=== PATIENT | female | born 1970 | race Caucasian/White ===

== ENCOUNTER → 2018-01-10 | Outpatient (CLI) | payer OTHER ==
--- NOTE | 2018-01-10 09:38 | DIAGNOSTIC IMAGING REPORT ---
MRI OF THE LUMBAR SPINE WITHOUT IV CONTRAST CLINICAL HISTORY: Chronic low back pain. Lumbosacral radiculopathy. COMPARISON STUDY: No priors. TECHNIQUE: MRI of the lumbar spine is performed utilizing various T1 and T2-weighted sequences in the axial and sagittal planes. IV contrast was not administered for this examination. FINDINGS: Lumbar spine: Vertebral body height and alignment are maintained throughout the lumbar spine. No destructive bony lesion is identified. A small hemangioma is incidentally noted in the body of L2. The transverse and spinous processes appear intact. There is no evidence of spondylolysis. Marrow signal intensity is mildly heterogeneous. Intervertebral discs: There is minimal degenerative disc desiccation seen throughout the lumbar spine. Mild loss of height is noted at L5-S1. Spinal cord: The partially imaged spinal cord is normal in morphology and signal intensity. The conus medullaris terminates at the T12-L1 interspace. The nerve roots of the cauda equina are normal in morphology. L1-L2: Unremarkable. L2-L3: Unremarkable. L3-L4: Unremarkable. L4-L5: Minimal facet arthropathy is of no consequence. The central canal and neural foramina are widely patent. L5-S1: There is minimal disc bulge eccentric to the left. This causes left-sided subarticular stenosis and may abut the exiting left L5 nerve root. This also abuts the transiting left S1 nerve root. Facet arthropathy causes mild left neural foraminal stenosis. Sacrum: The visualized sacrum is normal in morphology and signal intensity. Soft tissues: The paraspinous soft tissues are within normal limits. The visualized retroperitoneal structures are grossly unremarkable but incompletely assessed. IMPRESSION: 1. There is no disc herniation or central canal stenosis. 2. Degenerative disc disease at L5-S1 as detailed above. 3. No destructive bony process is identified. Dictated: 01/10/2018 7:46 AM Transcribed: 01/10/2018 9:37 AM Karen Electronically signed by: Sohail House M.D. 01/10/2018 9:49 AM Dictated Date/Time: 01/10/2018 7:46 AM
== END | disposition home or self-care (01) ==
LOC: C.MRI 07:00
PROVIDERS: ATTEND Physician Assistant
DX: M54.17 Radiculopathy, lumbosacral region (principal); M54.9 Dorsalgia, unspecified; R94.131 Abnormal electromyogram [EMG]

== ENCOUNTER → 2018-07-09 | Outpatient (CLI) | payer OTHER ==
--- NOTE | 2018-07-09 16:38 | DIAGNOSTIC IMAGING REPORT ---
L HAND MIN 3 VIEWS ROUTINE CLINICAL HISTORY: M46.90 pain COMPARISON: None. DISCUSSION: The bones and joint spaces appear intact. There is no evidence of fracture, dislocation or bony disease. There is no evidence for soft tissue swelling. IMPRESSION: Negative study. The above report was generated using voice recognition software. It may contain grammatical, syntax or spelling errors. Electronically signed by: Henry Menjivar M.D. 07/09/2018 4:37 PM Dictated Date/Time: 07/09/2018 4:36 PM
--- NOTE | 2018-07-09 16:39 | DIAGNOSTIC IMAGING REPORT ---
SI JOINTS 3 OR MORE VIEWS CLINICAL HISTORY: M46.90 pain COMPARISON STUDY: No previous studies for comparison. FINDINGS: Normal study IMPRESSION: Normal study The above report was generated using voice recognition software. It may contain grammatical, syntax or spelling errors. Electronically signed by: Henry Menjivar M.D. 07/09/2018 4:38 PM Dictated Date/Time: 07/09/2018 4:37 PM
== END | disposition home or self-care (01) ==
LOC: C.RAD1850 15:09
PROVIDERS: ATTEND Internal Medicine Rheumatology
DX: M46.90 Unspecified inflammatory spondylopathy, site unspecified (principal)

== ENCOUNTER → 2018-07-15 | Outpatient (CLI) | payer OTHER ==
--- NOTE | 2018-07-15 09:48 | DIAGNOSTIC IMAGING REPORT ---
SI JOINTS WITHOUT CLINICAL HISTORY: 47 years-old Female presenting with M46.90 Spondyloarthropathy, numbness in feet, radiculopathy into both legs. TECHNIQUE: Multisequence, multiplanar MR imaging of the sacroiliac joints was performed without the use of intravenous contrast. IV contrast: None. COMPARISON: Plain radiographs from 07/09/2018. FINDINGS: Localizer images: Fibroid uterus. Nonspecific subcutaneous edema in the lower lumbar region. Normal bone marrow signal intensity. No bony edema. Osteophytosis evident at the sacroiliac joints greater on the left. No evidence of osseous erosion. Trace fluid suggested in the left sacroiliac joint, which is asymmetric to the right. Trace fluid also noted along the ventral aspect of the sacroiliac joint (series 7 image 11). No muscle edema. Normal muscle bulk. Intrapelvic contents demonstrate trace free fluid in the pelvis, likely physiologic. IMPRESSION: 1. Trace fluid in the left sacroiliac joint. This is nonspecific but could be compatible with mild inflammatory or degenerative arthropathy. No osseous erosion or bony edema. 2. Left greater than right mild degenerative changes of the sacral iliac joints. Electronically signed by: Angel Stern M.D. 07/15/2018 9:47 AM Dictated Date/Time: 07/15/2018 9:41 AM
== END | disposition home or self-care (01) ==
LOC: C.MRI 08:59
PROVIDERS: ATTEND Internal Medicine Rheumatology
DX: M46.90 Unspecified inflammatory spondylopathy, site unspecified (principal)

== ENCOUNTER → 2018-07-16 | Outpatient (CLI) | payer OTHER ==
[2018-07-16 16:26] LABS: BASO % 0.3 %; BASO ABS # 0.04 K/uL (0-0.2); EOS % 3.8 %; EOS ABS # 0.52 K/uL (0-0.5); HEMATOCRIT 40.3 % (37-47); HEMOGLOBIN 13.4 g/dL (12.0-16.0); IG# 0.04 K/uL (0.00-0.02); LYMPH % 22.3 %; LYMPH ABS # 3.04 K/uL (1.2-3.4); MEAN CELL VOLUME 87.6 fL (80-100); MEAN CORPUSCULAR HEMOGLOBIN 29.1 pg (25-34); MEAN CORPUSCULAR HGB CONC 33.3 g/dl (32-36); MEAN PLATELET VOLUME 10.7 fL (7.4-10.4); MONO % 4.8 %; MONO ABS # 0.65 K/uL (0.11-0.59); NEUT % 68.5 %; NEUT ABS # 9.36 K/uL (1.4-6.5); PLATELET COUNT 293 K/uL (130-400); RED CELL DISTRIBUTION WIDTH CV 12.7 % (11.5-14.5); RED CELL DISTRIBUTION WIDTH SD 40.8 fL (36.4-46.3); WHITE BLOOD COUNT 13.65 K/uL (4.8-10.8)
[2018-07-16 16:45] LABS: ALBUMIN 3.3 gm/dl (3.4-5.0); ALKALINE PHOSPHATASE 89 U/L (45-117); ALT/SGPT 21 U/L (12-78); AST/SGOT 14 U/L (15-37); CREATININE 0.79 mg/dl (0.60-1.20); TOTAL PROTEIN 6.6 gm/dl (6.4-8.2)
== END | disposition home or self-care (01) ==
LOC: C.LAB1850 15:37
PROVIDERS: ATTEND Internal Medicine Rheumatology
DX: M46.1 Sacroiliitis, not elsewhere classified (principal); Z79.1 Long term (current) use of non-steroidal anti-inflammatories (NSAID)

== ENCOUNTER 2023-06-09 08:42 | Observation (INO) ==
--- NOTE | 2023-06-09 09:12 | Emergency Department Note ---
History of Present Illness General Chief complaint: Chest Pain Stated complaint: LIGHTHEADED, CHEST TIGHTNESS Time Seen by Provider: 06/09/23 09:01 History of Present Illness Maximum Pain Intensity: 5 This is a 52-year-old female that presents to the emergency department via private vehicle with complaints of "lightheaded, chest tightness". The patient notes that she has been outside as of recent in the warm weather and notes that she began to feel unwell. She notes that yesterday evening she then began with some lightheadedness and upon awakening today notes that when she breathes and she feels a tightness in her chest. She notes associated diarrhea, intermittent abdominal cramping, nausea and intermittent dry heaving. She denies any trauma or injury. She denies any fever. No history of AK or PE. Patient does note recent medication change, specifically notes addition of etodolac but she notes that her symptoms as described above began shortly after starting this medi cation therefore she stopped this medication as of recent. Home Medications Medication Instructions Recorded Confirmed Type divalproex 500 mg tablet,delayed See Rx Instructions .Route 12/25/22 06/09/23 Rx release .COMPLEX #90 tabs duloxetine 60 mg capsule,delayed 60 mg PO DAILY #90 caps 01/16/23 06/09/23 Rx release erenumab-aooe 140 mg/mL 140 mg subcut MONTHLY 90 days #3 mL 02/25/23 06/09/23 Rx subcutaneous auto-injector (Aimovig Autoinjector) cholecalciferol (vitamin D3) 1,250 50,000 unit PO .COMPLEX 30 days 03/05/23 06/09/23 Rx mcg (50,000 unit) capsule #30 caps cyclopentolate 1 % eye drops 1 drp ophthalmic (eye) TID #15 mL 03/24/23 06/09/23 Rx (Cyclogyl) prednisolone sodium phosphate 1 % 1 drp ophthalmic (eye) Q3H #10 mL 03/24/23 06/09/23 Rx eye drops divalproex 250 mg tablet,delayed 250 mg PO .at hs #90 tabs 05/29/23 06/09/23 Rx release (Depakote) Allergies Allergy/AdvReac Type Severity Reaction Status Date / Time adalimumab [From Humira(CF)] Allergy Intermediate rash Verified 06/03/23 11:49 Past Med/Surg History Medical History Ankylosing spondylitis Cervical pain Cervical radiculopathy Chronic constipation Depression with anxiety Fibromyalgia GERD (gastroesophageal reflux disease) HTN (hypertension) Hx of migraine headaches Long-term use of immunosuppressant medication Lumbosacral radiculitis Migraine aura without headache Polyarthritis Rosacea Sacroiliitis Surgical History Hx of tonsillectomy Tubal ligation status Family History Father Myocardial infarction Dementia Hypotension Heart trouble Unknown Heart trouble Diabetes Parkinsonism Colon cancer FH: endocrine and metabolic disease Mother Hypertension Other Gallbladder disease Heart disease Social History Smoking Status: Former smoker Hx Alcohol Use: No Hx Substance Use: Yes Last Used Substance: Days (ago) Substance Use Type Other:: medical marijuana for fibromyalgia and migraines Preferred Language: Lithuanian Communication Ability: Effective Visual Impairment: No Limitations Hearing Ability: Normal Reexaminer Required: No Beliefs That Will Affect Care: None marital status: Current Living Situation: Spouse Current Living Situation Comment: Home w/ and daughter current occupational status: unemployed Other Information That Helps Us Care for You: No other: " Does not want narcotics in her home" Feels Safe at Home: Yes Safety Concerns: Feels Safe At This Time Assistive Devices: Glasses Review of Systems A total of 10 systems reviewed and were otherwise negative Physical Exam Vital Signs Vital Signs - 24 hr 06/09/23 08:46 06/09/23 08:59 06/09/23 09:07 Temperature 36.4 C L Temperature Source Temporal Artery Scan Pulse Rate 71 58 L Pulse Rate from SpO2 Sensor Pulse Rhythm Respiratory Rate 18 Respiratory Effort / Characteristics Non-Labored Non-Labored Respiratory Depth Normal Normal Blood Pressure 124/82 Blood Pressure Mean 96 Blood Pressure Position Sitting Pulse Oximetry 98 Oxygen Delivery Method Room Air Room Air Sepsis Recent Fever Within 48 Hours No Sepsis New/Unexplained Change in Mental Status No Sepsis Action Taken by Nursing No Action Required 06/09/23 09:10 06/09/23 09:32 06/09/23 10:00 Temperature Temperature Source Pulse Rate 58 L 59 L 50 L Pulse Rate from SpO2 Sensor 60 49 L Pulse Rhythm Regular Respiratory Rate 18 18 19 Respiratory Effort / Characteristics Respiratory Depth Blood Pressure 130/72 114/66 Blood Pressure Mean 91 82 Blood Pressure Position Pulse Oximetry 98 97 96 Oxygen Delivery Method Room Air Sepsis Recent Fever Within 48 Hours Sepsis New/Unexplained Change in Mental Status Sepsis Action Taken by Nursing 06/09/23 10:30 06/09/23 11:00 06/09/23 11:30 Temperature Temperature Source Pulse Rate 49 L 48 L 56 L Pulse Rate from SpO2 Sensor 48 L 48 L 56 L Pulse Rhythm Respiratory Rate 12 13 13 Respiratory Effort / Characteristics Respiratory Depth Blood Pressure 108/74 124/65 124/66 Blood Pressure Mean 85 84 85 Blood Pressure Position Pulse Oximetry 96 96 96 Oxygen Delivery Method Sepsis Recent Fever Within 48 Hours Sepsis New/Unexplained Change in Mental Status Sepsis Action Taken by Nursing 06/09/23 12:00 06/09/23 12:30 06/09/23 13:00 Temperature Temperature Source Pulse Rate 55 L 54 L 53 L Pulse Rate from SpO2 Sensor 55 L 53 L Pulse Rhythm Respiratory Rate 11 L 17 15 Respiratory Effort / Characteristics Respiratory Depth Blood Pressure 122/73 120/71 116/73 Blood Pressure Mean 89 87 87 Blood Pressure Position Pulse Oximetry 99 96 Oxygen Delivery Method Sepsis Recent Fever Within 48 Hours Sepsis New/Unexplained Change in Mental Status Sepsis Action Taken by Nursing 06/09/23 13:05 06/09/23 14:00 Temperature Temperature Source Pulse Rate 57 L 52 L Pulse Rate from SpO2 Sensor 52 L Pulse Rhythm Respiratory Rate 15 Respiratory Effort / Characteristics Respiratory Depth Blood Pressure 128/75 Blood Pressure Mean 92 Blood Pressure Position Pulse Oximetry 97 Oxygen Delivery Method Sepsis Recent Fever Within 48 Hours Sepsis New/Unexplained Change in Mental Status Sepsis Action Taken by Nursing VITAL SIGNS - Vital signs and triage nursing notes were reviewed. Stable and afebrile. GENERAL -52-year-old female appearing her stated age who is in no acute distress. Communicates well with provider and answers questions appropriately. SKIN - Without rashes. No meningeal or petechial rash. HEAD - NC/AT. EYES - PERRL with EOMI bilaterally. Sclera anicteric. EARS - No deformities of external structures noted on gross examination bilaterally. NOSE - Midline and without cyanosis. No epistaxis or purulent drainage noted. MOUTH/OROPHARYNX - Without perioral cyanosis. NECK - Neck with FROM. No nuchal rigidity. LUNGS - Chest wall symmetric without accessory muscle use, intercostals retractions, or central cyanosis. Normal vesicular breath sounds CTA B/L. No wheezes, rales, or rhonchi appreciated. CARDIAC - RRR ABDOMEN - Abdominal contour normal without pulsations or visible masses. BS normoactive all four quadrants. No tenderness, palpable masses, hepatosplenomegaly, or ascites noted. EXTREMITIES - No clubbing or peripheral cyanosis. +5/5 strength noted in UE/LE bilaterally. NEUROLOGIC - Cranial nerves II through XII grossly intact. PSYCH - A&Ox3 and cooperates fully with examiner. Pt is very pleasant and interacts well with examiner. Course Administered Medications Cyclopentolate HCl (Cyclopentolate Hcl 1% Op Soln 2 Ml Btl) 1 drops OP TID NAS Stop: 07/09/23 20:59 Last Admin: 06/09/23 20:31 Dose: 1 drops Documented By: MALICK Divalproex Sodium (Divalproex Delay Release 250 Mg Tabec) 750 mg PO HS NAS Stop: 07/09/23 20:59 Last Admin: 06/09/23 20:30 Dose: 750 mg Documented By: MALICK Enoxaparin Sodium (Enoxaparin Inj 40 Mg/0.4 Ml Syr) 40 mg SQ Q12H NAS Stop: 07/09/23 20:59 Last Admin: 06/09/23 20:32 Dose: 40 mg Documented By: MALICK Prednisolone Sodium Phosphate (Prednisolone Sod Phos 1% 10 Ml Btl) 1 drops OP Q3H NAS Stop: 07/09/23 17:59 Last Admin: 06/09/23 20:34 Dose: 1 drops Documented By: Admin: 06/09/23 18:23 Dose: 1 drops Documented By: [facility] Discontinued Medications Gadobutrol (Gadobutrol 10ml Vial) 10 ml IV ONCE ONE Stop: 06/09/23 17:18 Last Admin: 06/09/23 17:17 Dose: 10 ml Documented By: ANA Sodium Chloride (Nss 1000ml) 1,000 mls @ 999 mls/hr IV .Q1H1M NAS Stop: 06/09/23 13:45 Last Infusion: 06/09/23 14:02 Dose: 0 mls/hr Documented By: Admin: 06/09/23 12:59 Dose: 999 mls/hr Documented By: JANET Lorazepam (Lorazepam 1 Mg Tab) 1 mg PO NOW STA Stop: 06/09/23 15:40 Last Admin: 06/09/23 15:43 Dose: 1 mg Documented By: ALLI Medical Decision Making Laboratory Data 06/09/23 08:55 06/09/23 08:55 Lab Results 06/09/23 06/09/23 06/09/23 Range/Units 08:55 08:55 08:55 WBC 7.91 (4.8-10.8) K/ul RBC 4.83 (4.20-5.40) M/uL Hgb 14.1 (12.0-16.0) g/dl Hct 42.5 (37.0-47.0) % MCV 88.0 (80.0-100.0) fL MCH 29.2 (25.0-34.0) pg MCHC 33.2 (32.0-36.0) g/dL RDW Std Deviation 41.9 (36.4-46.3) fL RDW Coeff of Shelli 13.0 (11.5-14.5) % Plt Count 297 (130-400) K/uL MPV 10.5 (9.4-12.4) fL Immature Gran % (Auto) 0.5 % Neut % (Auto) 56.4 % Lymph % (Auto) 28.6 % [place] % (Auto) 8.6 % Eos % (Auto) 4.6 % Baso % (Auto) 1.3 % Neut # (Auto) 4.47 (1.40-6.50) K/uL Lymph # (Auto) 2.26 (1.2-3.4) K/uL [place] # (Auto) 0.68 H (0.11-0.59) K/uL Eos # (Auto) 0.36 (0-0.50) K/uL Baso # (Auto) 0.10 (0-0.2) K/uL Immature Gran # (Auto) 0.04 (0.01-0.20) K/uL PT 10.1 (9.0-12.0) Seconds INR 0.9 (0.9-1.1) APTT 32.2 H (21.0-31.0) Seconds PTT Ratio 1.1 D-Dimer 250 (0-500) ug/L FEU Sodium 138 (136-145) mmol/L Potassium 4.1 (3.5-5.1) mmol/L Chloride 104 (98-107) mmol/L Carbon Dioxide 27 (21-32) mmol/L Anion Gap 7 (3-11) BUN 15 (6-23) mg/dl Creatinine 0.67 (0.6-1.2) mg/dl Est Cr Clr Drug Dosing 109.9 ml/min Est GFR ( Amer) 117.1 ml/min Est GFR (Non-Af Amer) 101.1 ml/min BUN/Creatinine Ratio 22.4 H (10-20) Glucose 90 (70-99(Fasting)) mg/dl Calcium 9.1 (8.6-10.3) mg/dl Magnesium 2.0 (1.7-2.4) mg/dl Total Bilirubin 0.6 (0.2-1.0) mg/dl AST 13 (13-39) U/L ALT 12 (7-52) U/L Alkaline Phosphatase 72 (34-104) U/L Troponin I High Sens < 2.3 (0-14) pg/ml Total Protein 6.9 (6.0-8.3) gm/dl Albumin 4.1 (3.4-5.0) gm/dl Globulin 2.8 (2.5-4.0) gm/dl Albumin/Globulin Ratio 1.5 (0.9-2) Lipase 21 (11-82) U/L Adenovirus (PCR) (NotDetected) B. pertussis DNA (PCR) (NotDetected) B.parapertussis DNA PCR (NotDetected) C. pneumoniae DNA (PCR) (NotDetected) Coronavirus OC43 (PCR) (NotDetected) Coronavirus HKU1 (PCR) (NotDetected) Coronavirus 229E (PCR) (NotDetected) SARS-CoV-2 (PCR) (NotDetected) Coronavirus NL63 (PCR) (NotDetected) Human Metapneumovir PCR (NotDetected) Influenza Type A (PCR) (NotDetected) Influenza Type B (PCR) (NotDetected) M. pneumoniae (PCR) (NotDetected) Parainfluenza 1 (PCR) (NotDetected) Parainfluenza 2 (PCR) (NotDetected) Parainfluenza 3 (PCR) (NotDetected) Parainfluenza 4 (PCR) (NotDetected) RSV (PCR) (NotDetected) Entero/Rhino (PCR) (NotDetected) 06/09/23 06/09/23 Range/Units 09:26 11:07 WBC (4.8-10.8) K/ul RBC (4.20-5.40) M/uL Hgb (12.0-16.0) g/dl Hct (37.0-47.0) % MCV (80.0-100.0) fL MCH (25.0-34.0) pg MCHC (32.0-36.0) g/dL RDW Std Deviation (36.4-46.3) fL RDW Coeff of Shelli (11.5-14.5) % Plt Count (130-400) K/uL MPV (9.4-12.4) fL Immature Gran % (Auto) % Neut % (Auto) % Lymph % (Auto) % [place] % (Auto) % Eos % (Auto) % Baso % (Auto) % Neut # (Auto) (1.40-6.50) K/uL Lymph # (Auto) (1.2-3.4) K/uL [place] # (Auto) (0.11-0.59) K/uL Eos # (Auto) (0-0.50) K/uL Baso # (Auto) (0-0.2) K/uL Immature Gran # (Auto) (0.01-0.20) K/uL PT (9.0-12.0) Seconds INR (0.9-1.1) APTT (21.0-31.0) Seconds PTT Ratio D-Dimer (0-500) ug/L FEU Sodium (136-145) mmol/L Potassium (3.5-5.1) mmol/L Chloride (98-107) mmol/L Carbon Dioxide (21-32) mmol/L Anion Gap (3-11) BUN (6-23) mg/dl Creatinine (0.6-1.2) mg/dl Est Cr Clr Drug Dosing ml/min Est GFR ( Amer) ml/min Est GFR (Non-Af Amer) ml/min BUN/Creatinine Ratio (10-20) Glucose (70-99(Fasting)) mg/dl Calcium (8.6-10.3) mg/dl Magnesium (1.7-2.4) mg/dl Total Bilirubin (0.2-1.0) mg/dl AST (13-39) U/L ALT (7-52) U/L Alkaline Phosphatase (34-104) U/L Troponin I High Sens < 2.3 (0-14) pg/ml Total Protein (6.0-8.3) gm/dl Albumin (3.4-5.0) gm/dl Globulin (2.5-4.0) gm/dl Albumin/Globulin Ratio (0.9-2) Lipase (11-82) U/L Adenovirus (PCR) Not Detected (NotDetected) B. pertussis DNA (PCR) Not Detected (NotDetected) B.parapertussis DNA PCR Not Detected (NotDetected) C. pneumoniae DNA (PCR) Not Detected (NotDetected) Coronavirus OC43 (PCR) Not Detected (NotDetected) Coronavirus HKU1 (PCR) Not Detected (NotDetected) Coronavirus 229E (PCR) Not Detected (NotDetected) SARS-CoV-2 (PCR) Not Detected (NotDetected) Coronavirus NL63 (PCR) Not Detected (NotDetected) Human Metapneumovir PCR Not Detected (NotDetected) Influenza Type A (PCR) Not Detected (NotDetected) Influenza Type B (PCR) Not Detected (NotDetected) M. pneumoniae (PCR) Not Detected (NotDetected) Parainfluenza 1 (PCR) Not Detected (NotDetected) Parainfluenza 2 (PCR) Not Detected (NotDetected) Parainfluenza 3 (PCR) Not Detected (NotDetected) Parainfluenza 4 (PCR) Not Detected (NotDetected) RSV (PCR) Not Detected (NotDetected) Entero/Rhino (PCR) Not Detected (NotDetected) Imaging Data Radiologist's Impression: Chest X-Ray 06/09/23 00:00 XR chest 1V portable HISTORY: 52 years-old Female CHEST PAIN acute chest pain COMPARISON: 03/25/2019 TECHNIQUE: AP view of the chest FINDINGS: Cardiomediastinal and hilar silhouettes are within normal limits. No pneumothorax, pleural effusion, airspace consolidation or pulmonary edema. Spondylotic spurring of the spine. IMPRESSION: No acute process. ACT 112: Negative or not required by law. The above report was generated using voice recognition software. It may contain grammatical, syntax or spelling errors. Electronically signed by: Donnie Patton M.D. 06/09/2023 12:49 PM MDM Narrative Patient was seen and evaluated as above in room A12. Review was performed of triage nursing notes and vital signs.After obtaining a thorough history and physical examination the above work up was performed. Patient presents to us today for evaluation of lightheadedness, chest tightness with associated diarrhea, intermittent abdominal cramping, nausea and dry heaving. Patient clinically well-appearing and nontoxic on examination. No focal deficits. Benign abdominal exam noted. Patient also added on later in her stay that she had bilateral ringing in her ears. Further evaluation of the ears does reveal some yellowish fluid behind the bilateral TMs without bulging or erythema. Canals normal. Options of care were discussed with the patient. IV access was established. Labs were drawn. Chest x-ray was obtained. Chest x-ray essentially negative for acute process. EKG reveals sinus bradycardia at a rate of 54 bpm. There is no [address] elevation. QTc 413. QRS 74. Labs reveal no leukocytosis or concerning anemia. D-dimer within normal range. Metabolic panel without emergent process. Troponin negative x2. Urinalysis does not suggest infection. Bio fire upper respiratory panel was negative. Upon reassessment the patient noted persistence of lightheadedness. IV fluids were ordered. Upon reevaluation the lighthe adedness persisted. I did at bedside have the patient's stand and attempt to ambulate. She became significantly lightheaded during this. At this time I do believe that further evaluation and management in the inpatient setting is warranted. Patient amenable to staying in the hospital. Case discussed with the hospitalist service. Please refer to further documentation regarding her stay. An order was placed for continuous cardiac monitoring which revealed sinus rhythm at a rate of 60 bpm. GCS: 15 In the evaluation and treatment of this patient the following differential diagnoses were entertained: AK, PE, pericarditis, costochondritis, heart failure, CVA, TIA, electrolyte disturbance, medication reaction, among others Impression & Plan Sensation of chest tightness, Light-headedness Discharge Plan Visit Data Chief Complaint: Chest Pain Stated Complaint: LIGHTHEADED, CHEST TIGHTNESS ED Provider: Paula Cloud ED Midlevel Provider: Nigel Palm Discharge Problem: Sensation of chest tightness, Light-headedness Patient Disposition: Admitted As Inpatient Discharge Instructions Interventions: ED Discharge Assessment Last Done: 06/09/23 15:48
[2023-06-09 09:34] LABS: Basophils % (auto) 1.3 %; Eosinophils # (auto) 0.36 K/uL (0-0.50); Eosinophils % (auto) 4.6 %; Hematocrit (blood only) 42.5 % (37.0-47.0); Hemoglobin 14.1 g/dl (12.0-16.0); Immature Granulocytes # (auto) 0.04 K/uL (0.01-0.20); Immature Granulocytes % (auto) 0.5 %; Lymphocytes # (auto) 2.26 K/uL (1.2-3.4); Lymphocytes % (auto) 28.6 %; Mean Corpuscular Hemoglobin 29.2 pg (25.0-34.0); Mean Corpuscular Hgb Conc 33.2 g/dL (32.0-36.0); Mean Platelet Volume 10.5 fL (9.4-12.4); Monocytes # (auto) 0.68 K/uL (0.11-0.59); Monocytes % (auto) 8.6 %; Neutrophils # (auto) 4.47 K/uL (1.40-6.50); Neutrophils % (auto) 56.4 %; Platelet Count 297 K/uL (130-400); RDW Standard Deviation 41.9 fL (36.4-46.3); Red Blood Count 4.83 M/uL (4.20-5.40); White Blood Count 7.91 K/ul (4.8-10.8)
[2023-06-09 09:36] LABS: Alanine Aminotransferase 12 U/L (7-52); Albumin Globulin Ratio 1.5 (0.9-2); Albumin Level 4.1 gm/dl (3.4-5.0); Alkaline Phosphatase 72 U/L (34-104); Anion Gap 7 (3-11); Aspartate Aminotransferase 13 U/L (13-39); BUN Creatinine Ratio 22.4 (10-20); Bilirubin,Total 0.6 mg/dl (0.2-1.0); Blood Urea Nitrogen 15 mg/dl (6-23); Calcium 9.1 mg/dl (8.6-10.3); Carbon Dioxide 27 mmol/L (21-32); Chloride 104 mmol/L (98-107); Creatinine Clr Calc Pharmacy 109.9 ml/min; Est GFR (African American) 117.1 ml/min; Est GFR (Non-African American) 101.1 ml/min; Globulin 2.8 gm/dl (2.5-4.0); Glucose 90 mg/dl (70-99(Fasting)); Lipase 21 U/L (11-82); Potassium 4.1 mmol/L (3.5-5.1); Sodium 138 mmol/L (136-145); Total Protein 6.9 gm/dl (6.0-8.3)
[2023-06-09 09:43] LABS: Troponin I High Sensitivity < 2.3 pg/ml (0-14)
[2023-06-09 09:58] LABS: D Dimer 250 ug/L FEU (0-500); INR 0.9 (0.9-1.1); Partial Thromboplastin Ratio 1.1; Partial Thromboplastin Time 32.2 Seconds (21.0-31.0); Prothrombin Time 10.1 Seconds (9.0-12.0)
[2023-06-09 10:29] LABS: Adenovirus PCR Not Detected (NotDetected); Bordetella parapertussis PCR Not Detected (NotDetected); Bordetella pertussis PCR Not Detected (NotDetected); Chlamydia pneumoniae PCR Not Detected (NotDetected); Coronavirus 229E PCR Not Detected (NotDetected); Coronavirus CoV-2 (COVID19)PCR Not Detected (NotDetected); Coronavirus HKU1 PCR Not Detected (NotDetected); Coronavirus NL63 PCR Not Detected (NotDetected); Coronavirus OC43PCR Not Detected (NotDetected); Human Metapneumovirus PCR Not Detected (NotDetected); Influenza A PCR Not Detected (NotDetected); Influenza B PCR Not Detected (NotDetected); Mycoplasma pneumoniae PCR Not Detected (NotDetected); Parainfluenza Virus 1 PCR Not Detected (NotDetected); Parainfluenza Virus 2 PCR Not Detected (NotDetected); Parainfluenza Virus 3 PCR Not Detected (NotDetected); Parainfluenza Virus 4 PCR Not Detected (NotDetected); Respiratory Syncytial VirusPCR Not Detected (NotDetected); Rhinovirus/Enterovirus PCR Not Detected (NotDetected)
[2023-06-09] MEDS ORDERED: SODIUM CHLORIDE 0.9% 1000ML 1,000 ML IV SCH (12:45)
--- NOTE | 2023-06-09 12:50 | XRay Report ---
XR chest 1V portable HISTORY: 52 years-old Female CHEST PAIN acute chest pain COMPARISON: 03/25/2019 TECHNIQUE: AP view of the chest FINDINGS: Cardiomediastinal and hilar silhouettes are within normal limits. No pneumothorax, pleural effusion, airspace consolidation or pulmonary edema. Spondylotic spurring of the spine. IMPRESSION: No acute process. ACT 112: Negative or not required by law. The above report was generated using voice recognition software. It may contain grammatical, syntax o r spelling errors. Electronically signed by: Donnie Patton M.D. 06/09/2023 12:49 PM
--- NOTE | 2023-06-09 14:38 | History & Physical Report ---
Date of Service June 09, 2023 Assessment & Plan (1) Dizziness: Plan: Dizziness, left arm numbness No leukocytosis, CXR is normal Electrolytes/BMP is normal High-sensitivity troponin is undetectable x2 - Nausea/lightheaded WITHOUT room spinning/vertigo but feels she cannot walk due to sudden onset of lightheadedness. This feels different from prior dizziness she has had in the past - Now chest tightness/pain with deep inspiration, D-Dimer negative. Troponin negative x2. - EKG: sinus bradycardia, qtc 413. No territorial signs of ischemia - MRI 04/2023: 1. No acute infarct or intracranial hemorrhage. 2. No change in the scattered nonspecific foci of increased T2 signal within the white matter. This favors mild microvascular ischemic change or migraines given the long-term stability. A demyelinating process could also be considered in the differential diagnosis but is considered less likely. No history of CVA, used to be on aspirin but transitioned for uveitis management as noted below Does have strong family history and multiple family members on her father side, patient's MRI above was not able to be completed with contrast due to claustrophobia Due to left upper extremity neurologic deficit (asymmetrical sensory change), focal dizziness without vertigo and orthostasis in ER, and MRI concerning for potential demyelinating disease above will repeat MRI of the brain and C-spine with contrast for reevaluation Patient without orthostatic hypotension at bedside and did not improve with fluids on ambulatory trial Ankylosing spondylitis, uveitis Follows with rheumatology 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 Started adalimumab every 14 days NSAIDs Systolic murmur New to patient, soft murmur best appreciated at left parasternal border Echo pending Ocular migraine Continue Aimovig Topiramate previously discontinued due to sedation/forgetfulness/cognitive side effects Outpatient MRIs have been normal Fibromyalgia Continue home medications, pain adequately controlled on admission Anxiety/depression Continue Cymbalta On Depakote HUMAN RESOURCE OFFICER, 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: Lovenox Disposition: Medical telemetry for dizziness/presyncope CODE STATUS: Full code Diet: Regular (2) Ankylosing spondylitis: (3) Cervical pain: (4) Cervical radiculopathy: (5) GERD (gastroesophageal reflux disease): (6) Polyarthritis: (7) Fibromyalgia: History of Present Illness Primary Care Provider: Avery Rodríguez MD Irlanda is a 52-year-old female with a past medical history of BMI 41, hypertension, cervical radiculopathy, ankylosing spondylitis, GERD, fibromyalgia, depression/anxiety, polyarthritis, and migraine who presented to the ER with lightheadedness and chest tightness/chest pain. Lightheadedness, dizziness, and feeling 'off balance' with terribl elightheadedness last night. Lightheadedness started a few days ago. Was taking etodolac for pain, has not taken this in the last day or two. Has had lightheadness before, but this 'feels different than before both more severe and more like I'll fall' Inner ears are with strong tinnitus in the last week. Had an MRI which was supposed to be contrasted, but could not tolerate the MRI due to anxiety so that portion was cancelled Chest feels tight/harrison gwhen breathing but not pain No weakness in the arms of legs, L arm with numbness and tingling much worse than normal but is not week. Does get R eye ocular migraines which can cause vision loss for several days R eye uvetits. Stopped aspirin and is now on humira No strokes, no heart attack FHx of Multiple Sclerosis in fathers side of the family. PGM with MS and Parkinsons. Neice and aunt also with MS MRI 04/2023: 1. No acute infarct or intracranial hemorrhage. 2. No change in the scattered nonspecific foci of increased T2 signal within the white matter. This favors mild microvascular ischemic change or migraines given the long-term stability. A demyelinating process could also be considered in the differential diagnosis but is considered less likely. Medical History: Reviewed Medications: Reviewed Surgical History: Reviewed Family history: Reviewed Allergies: Reviewed Social History: No tobacco product, marijuana card uses oil tinctures and lozenges which help with migraines, no recreational drug use Code Status: Full Code Allergies Allergy/AdvReac Type Severity Reaction Status Date / Time adalimumab [From Humira(CF)] Allergy Intermediate rash Verified 06/03/23 11:49 Home Medications Medication Instructions Recorded Confirmed Type divalproex 500 mg tablet,delayed See Rx Instructions .Route 12/25/22 06/09/23 Rx release .COMPLEX #90 tabs duloxetine 60 mg capsule,delayed 60 mg PO DAILY #90 caps 01/16/23 06/09/23 Rx release erenumab-aooe 140 mg/mL 140 mg subcut MONTHLY 90 days #3 mL 02/25/23 06/09/23 Rx subcutaneous auto-injector (Aimovig Autoinjector) cholecalciferol (vitamin D3) 1,250 50,000 unit PO .COMPLEX 30 days 03/05/23 06/09/23 Rx mcg (50,000 unit) capsule #30 caps cyclopentolate 1 % eye drops 1 drp ophthalmic (eye) TID #15 mL 03/24/23 06/09/23 Rx (Cyclogyl) prednisolone sodium phosphate 1 % 1 drp ophthalmic (eye) Q3H #10 mL 03/24/23 06/09/23 Rx eye drops divalproex 250 mg tablet,delayed 250 mg PO .at hs #90 tabs 05/29/23 06/09/23 Rx release (Depakote) Past Med/Surg History Medical History Ankylosing spondylitis Cervical pain Cervical radiculopathy Chronic constipation Depression with anxiety Fibromyalgia GERD (gastroesophageal reflux disease) HTN (hypertension) Hx of migraine headaches Long-term use of immunosuppressant medication Lumbosacral radiculitis Migraine aura without headache Polyarthritis Rosacea Sacroiliitis Surgical History Hx of tonsillectomy Tubal ligation status Family History Father Myocardial infarction Dementia Hypotension Heart trouble Unknown Heart trouble Diabetes Parkinsonism Colon cancer FH: endocrine and metabolic disease Mother Hypertension Other Gallbladder disease Heart disease Social History Smoking Status: Former smoker Hx Alcohol Use: No Hx Substance Use: No Preferred Language: Romanian Visual Impairment: No Limitations Hearing Ability: Normal Blocking Machine Tender Required: No Beliefs That Will Affect Care: None marital status: Current Living Situation: Family Current Living Situation Comment: Raising granddaughter, Claire recovering addict - clean for 1 year- 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 NAD. Cooperative. HEENT: Atraumatic, normocephalic. Vision and hearing intact Pulm: CTAB A&P. -wheezes, -rales, -rhonchi. Symmetrical chest rise. No increased work of breathing. No respiratory distress. Cardiac: RRR, soft sm. Radial pulses intact and symmetrical. Abdominal: Nontender, nondistended, soft. BS present. CRANIAL NERVES: II: Pupils equal and reactive, no relative afferent pupillary defect, no VF cuts III, IV, : EOM intact, no gaze preference or deviation, no nystagmus. V: normal sensation in V1, V2, and V3 segments bilaterally VII: no asymmetry, no nasolabial fold flattening VIII: normal hearing to speech IX, X: normal palatal elevation, no uvular deviation XI: 5/5 head turn and 5/5 shoulder shrug bilaterally XII: midline tongue protrusion MOTOR: RUE: 5/5 Shoulder internal rotation, external rotation, flexion, extension, abduction, adduction 5/5 Elbow flexion/extension, wrist flexion/extension 5/5 it business systems analyst strength, finger flexion/extension, interosseus LUE: 5/5 Shoulder internal rotation, external rotation, flexion, extension, abduction, adduction 5/5 Elbow flexion/extension, wrist flexion/extension 5/5 it business systems analyst strength, finger flexion/extension, interosseus RLE: 5/5 to hip flexion, ankle dorsiflexion/plantarflexion LLE: 5/5 to hip flexion, ankle dorsiflexion/plantarflexion REFLEXES: no clonus SENSORY: Left upper extremity with intact but diminished sensation at the hand, forearm compared to the right. Lower extremity sensation intact and COORD: Normal finger to nose and heel to virk, no tremor, no dysmetria Results & Data Results & Data Vital Signs (Past 12 Hours) Vital Signs Temp Pulse Resp BP Pulse Ox O2 Del Method 06/09/23 13:05 57 L 06/09/23 13:00 53 L 15 116/73 06/09/23 12:30 54 L 17 120/71 96 06/09/23 12:00 55 L 11 L 122/73 99 06/09/23 11:30 56 L 13 124/66 96 06/09/23 11:00 48 L 13 124/65 96 06/09/23 10:30 49 L 12 108/74 96 06/09/23 10:00 50 L 19 114/66 96 06/09/23 09:32 59 L 18 130/72 97 06/09/23 09:10 58 L 18 98 Room Air 06/09/23 09:07 Room Air 06/09/23 08:59 58 L 06/09/23 08:46 36.4 C L 71 18 124/82 98 Room Air PG Care Time/CCT Total # of Minutes Spent Total Time Spent with Patient: Total time spent is greater than 50% in coordination of care (as documented) at patient's floor/unit and/or counseling patient: Coding Level of Care Code 82843 INT INP/OBS CARE 3/75MIN Diagnoses Dizziness R42 Ankylosing spondylitis M45.9 Cervical pain M54.2 Cervical radiculopathy M54.12 GERD (gastroesophageal reflux disease) K21.9 Polyarthritis M13.0 Fibromyalgia M79.7
[2023-06-09] MEDS ORDERED: LORazepam 1 MG TAB PO PRN (14:51)
[2023-06-09] MEDS ORDERED: LORazepam 1 MG TAB PO STA (15:39)
[2023-06-09] MEDS ORDERED: GADOBUTROL 10ML VIAL IV ONE (17:17)
[2023-06-09] MEDS ORDERED: ACETAMINOPHEN 325 MG TAB PO PRN (17:53)
[2023-06-09] MEDS: prednisoLONE sod phos 1% 10 ML BTL OP SCH ×2 (18:23→20:34)
--- NOTE | 2023-06-09 20:07 | Magnetic Resonance Report ---
MR cervical spine wo/w con HISTORY: 52 years-old Female L arm sensory loss, balance loss. FHX Multiple Scl acute neck pain with left upper extremity sensory loss COMPARISON: 02/06/2000 TECHNIQUE: Multiplanar multisequence MRI of the cervical spine was obtained both with and without the use of IV contrast FINDINGS: No abnormal enhancement. Motion degraded exam. Normal signal within the cervical and imaged thoracic spinal cord. Artifact on the axial images limits evaluation of the cervical spinal cord. No acute fra cture, subluxation, significant bone or soft tissue edema. CT-C3: Uncovertebral hypertrophy with mild facet arthrosis. No central canal or neural foraminal narr owing. Unchanged. C3-C4: Uncovertebral hypertrophy with mild facet arthrosis. No central canal or neural foraminal narr owing. Unchanged. C4-C5: Uncovertebral hypertrophy with mild facet arthrosis. Central canal and left neural foramen are patent. Mild right neural foraminal narrowing. C5-C6: Uncovertebral hypertrophy with mild facet arthrosis. The central canal is patent. Moderate lisa ateral neural foraminal narrowing. C6-C7: Uncovertebral hypertrophy with tiny circumferential annular disc bulge. Mild facet arthrosis. The central canal is patent. Mild to moderate bilateral foraminal narrowing a similar to prior. C7-T1: Mild facet arthrosis. No central canal or neural foraminal narrowing. IMPRESSION: 1. Motion degraded exam. 2. Normal signal within the cervical spinal cord. 3. No abnormal enhancement. 4. No high-grade central canal or neural foraminal stenosis. ACT 112: Negative or not required by law. The above report was generated using voice recognition software. It may contain grammatical, syntax o r spelling errors. Electronically signed by: Donnie Patton M.D. 06/09/2023 8:05 PM
--- NOTE | 2023-06-09 20:07 | Magnetic Resonance Report ---
MR brain wo/w con HISTORY: 52 years-old Female L arm sensory loss, balance loss. FHX Multiple Scl acute memory loss COMPARISON: 04/19/2023 TECHNIQUE: Multiplanar multisequence MRI of the brain was obtained with and without the use of IV con trast FINDINGS: No restricted diffusion. Midline shift measures are unremarkable. No acute intracranial hemorrhage, m idline shift, abnormal extra-axial collection, hydrocephalus or intracranial mass. No pathologic hunter fact. Moderate involutional changes with unchanged mild scattered subcentimeter T2/FLAIR intense foci throughout the white matter, predominantly in a subcortical distribution. Cerebral venous sinuses and major arterial flow voids appear patent. Skull, orbits and soft tissues a re unremarkable. Mastoid air cells and paranasal sinuses are clear. Normal signal of the imaged cervi little spinal cord. No abnormal enhancement. IMPRESSION: 1. No acute intracranial abnormality. 2. No abnormal enhancement. 3. Unchanged mild scattered T2/FLAIR hyperintense foci throughout the white matter compared to the study which is again noted within a subcortical predominate distribution. Again, this favors chronic microvascular ischemic disease. A demyelinating process such as multiple sclerosis considered less likely. ACT 112: Negative or not required by law. The above report was generated using voice recognition software. It may contain grammatical, syntax o r spelling errors. Electronically signed by: Donnie Patton M.D. 06/09/2023 8:05 PM
[2023-06-09] MEDS: CYCLOPENTOLATE HCL 1% OP SOLN 2 ML BTL OP SCH (20:31)
[2023-06-09] MEDS: ENOXAPARIN INJ 40 MG/0.4 ML SYR SQ SCH (20:32)
[2023-06-09] MEDS ORDERED: DIVALPROEX DELAY RELEASE 250 MG TABEC PO SCH (21:00)
[2023-06-09 21:01] LABS: Appearance Urine Clear (Clear); Bilirubin Urine Negative (Negative); Blood Urine Negative (Negative); Color Urine Yellow; Glucose Urine UA Negative (Negative); Ketones Urine Negative (Negative); Leukocyte Esterase Urine Negative (Negative); Nitrite Urine Negative (Negative); Protein Urine Negative (Negative); Specific Gravity Urine 1.019 (1.000-1.030); Urobilinogen Urine Negative (Negative); pH Urine 8.5 (4.5-7.5)
[2023-06-09 21:47] LABS: Amphetamines+Metham, Urine Neg (Neg); Barbiturates, Urine Neg (Neg); Benzodiazepine, Urine Neg (Neg); Cocaine, Urine Neg (Neg); MDMA (Ecstacy), Urine Neg (Neg); Methadone, Urine Neg (Neg); Opiate, Urine Neg (Neg); Phencyclidine, Urine Neg (Neg)
[2023-06-10] MEDS: prednisoLONE sod phos 1% 10 ML BTL OP SCH ×6 (00:05→14:55)
--- NOTE | 2023-06-10 06:48 | Hospitalist Progress Note ---
Date of Service June 10, 2023 Assessment & Plan Admission and Anticipated Discharge Date Admission Date: June 09, 2023 Subjective 52-year-old female with a past medical history of BMI 41, hypertension, cervical radiculopathy, ankylosing spondylitis, GERD, fibromyalgia, depression/anxiety, polyarthritis, and migraine who presented to the ER with lightheadedness and chest tightness/chest pain. Results & Data Results & Data Vital Signs (Past 12 Hours) Vital Signs Temp Pulse Pulse Resp BP Pulse Ox O2 Del Method 06/10/23 02:51 36.5 C 73 18 107/71 98 Room Air 06/09/23 22:50 55 L 06/09/23 22:33 36.6 C 69 18 126/75 98 Room Air 06/09/23 19:25 36.6 C 60 18 121/74 94 Room Air
--- NOTE | 2023-06-10 06:53 | Hospitalist Progress Note ---
Date of Service June 10, 2023 Assessment & Plan (1) Nausea & vomiting: Plan: Zofran 4mg IV PRN (2) Diarrhea: Plan: Worse since admission stool biofire and c diff negative Consideration for IBS vs. atypical/complicated migraine (3) Abdominal pain: Plan: Continue to monitor If nausea improves consider CT abdomen w/ contrast (4) Sensation of chest tightness: Plan: - New chest tightness/pain with deep inspiration, D-Dimer negative. Troponin negative x2. - EKG: sinus bradycardia, qtc 413. No territorial signs of ischemia No leukocytosis, CXR is normal Electrolytes/BMP is normal - New grade 1 systolic murmur - F/U Echo. (5) Cervical radiculopathy: Plan: -With asymmentric sensory change, dizziness without vertigo and orthostasis in ER -Previous MRI concerning for potential demyelinating disease -Repeat MRI of brain and C-spine with contrast for reevaluation (6) Dizziness: Plan: - MRI 04/2023:1. No acute infarct or intracranial hemorrhage. 2. No change in the scattered nonspecific foci of increased T2 signal within the white matter. This favors mild microvascular ischemic change or migraines given the long-term stability. A demyelinating process could also be considered in the differential diagnosis but is considered less likely. No history of CVA, used to be on aspirin but transitioned for uveitis management as noted below Does have strong family history and multiple family members on her father side, patient's MRI above was not able to be completed with contrast due to claust rophobia Due to left upper extremity neurologic deficit (asymmetrical sensory change), focal dizziness without vertigo and orthostasis in ER, and MRI concerning for potential demyelinating disease above will repeat MRI of the brain and C-spine with contrast for reevaluation Patient without orthostatic hypotension at bedside and did not improve with fluids on ambulatory trial (7) Ocular migraine: Plan: Continue Aimovig Topiramate previously discontinued due to sedation/forgetfulness/cognitive side effects Outpatient MRIs have been normal (8) Depression with anxiety: Plan: Continue Cymbalta 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 Subjective 52-year-old female with a past medical history of BMI 41, hypertension, cervical radiculopathy, ankylosing spondylitis, GERD, fibromyalgia, depression/anxiety, polyarthritis, and migraine who presented to the ER with lightheadedness and chest tightness/chest pain. Dizziness and paraesthesias improved since admission. Developed worsening N/V/D overnight, which was present on admission but not noted. She had several episodes of foul smelling, reddish loose stool associated with mild, diffuse abdominal pain and tenderness. Denies sick contacts, recent travel. Review of Systems Review of Systems: All systems reviewed & are unremarkable except as noted in HPI & below Physical Exam Physical Exam: General: A&Ox3. NAD. Cooperative. HEENT: Atraumatic, normocephalic. Vision and hearing intact Pulm: CTAB A&P. -wheezes, -rales, -rhonchi. Symmetrical chest rise. No increased work of breathing. No respiratory distress. Cardiac: RRR, soft sm. Radial pulses intact and symmetrical. Abdominal: Nontender, nondistended, soft. BS present. CRANIAL NERVES: II: Pupils equal and reactive, no relative afferent pupillary defect, no VF cuts III, IV, : EOM intact, no gaze preference or deviation, no nystagmus. V: normal sensation in V1, V2, and V3 segments bilaterally VII: no asymmetry, no nasolabial fold flattening VIII: normal hearing to speech IX, X: normal palatal elevation, no uvular deviation XI: 5/5 head turn and 5/5 shoulder shrug bilaterally XII: midline tongue protrusion MOTOR: RUE: 5/5 Shoulder internal rotation, external rotation, flexion, extension, abduction, adduction 5/5 Elbow flexion/extension, wrist flexion/extension 5/5 metal mockup maker strength, finger flexion/extension, interosseus LUE: 5/5 Shoulder internal rotation, external rotation, flexion, extension, abduction, adduction 5/5 Elbow flexion/extension, wrist flexion/extension 5/5 metal mockup maker strength, finger flexion/extension, interosseus RLE: 5/5 to hip flexion, ankle dorsiflexion/plantarflexion LLE: 5/5 to hip flexion, ankle dorsiflexion/plantarflexion REFLEXES: no clonus SENSORY: Left upper extremity with intact but diminished sensation at the hand, forearm compared to the right. Lower extremity sensation intact and COORD: Normal finger to nose and heel to virk, no tremor, no dysmetria Results & Data Results & Data Vital Signs (Past 12 Hours) Vital Signs Temp 36.4 C L 06/10/23 07:20 Pulse 65 06/10/23 07:20 Resp 20 06/10/23 07:20 BP 120/78 06/10/23 07:20 Pulse Ox 94 06/10/23 07:20 O2 Del Method Room Air 06/10/23 07:20 Intake & Output 06/09/23 06/10/23 06/10/23 18:59 06:59 18:59 Intake Total 1000 / 1270 270 / 1270 Balance 1000 / 1270 270 / 1270 Weight 102.058 kg 102 kg Intake: IV 1000 / 1000 Sodium Chloride 0.9% 1000ML 1, 1000 / 1000 000 ml @ 999 mls/hr IV .Q1H1M [facility] Rx#:[id number] Oral 270 / 270 Other: Weight Measurement Method Built in [facility] Laboratory Results 06/09/23 06/09/23 06/09/23 Range/Units 20:36 20:36 20:36 WBC (4.8-10.8) K/ul RBC (4.20-5.40) M/uL Hgb (12.0-16.0) g/dl Hct (37.0-47.0) % MCV (80.0-100.0) fL MCH (25.0-34.0) pg MCHC (32.0-36.0) g/dL RDW Std Deviation (36.4-46.3) fL RDW Coeff of Shelli (11.5-14.5) % Plt Count (130-400) K/uL MPV (9.4-12.4) fL Immature Gran % (Auto) % Neut % (Auto) % Lymph % (Auto) % Wayne % (Auto) % Eos % (Auto) % Baso % (Auto) % Neut # (Auto) (1.40-6.50) K/uL Lymph # (Auto) (1.2-3.4) K/uL Wayne # (Auto) (0.11-0.59) K/uL Eos # (Auto) (0-0.50) K/uL Baso # (Auto) (0-0.2) K/uL Immature Gran # (Auto) (0.01-0.20) K/uL PT (9.0-12.0) Seconds INR (0.9-1.1) APTT (21.0-31.0) Seconds PTT Ratio D-Dimer (0-500) ug/L FEU Sodium (136-145) mmol/L Potassium (3.5-5.1) mmol/L Chloride (98-107) mmol/L Carbon Dioxide (21-32) mmol/L Anion Gap (3-11) BUN (6-23) mg/dl Creatinine (0.6-1.2) mg/dl Est Cr Clr Drug Dosing ml/min Est GFR ( Amer) ml/min Est GFR (Non-Af Amer) ml/min BUN/Creatinine Ratio (10-20) Glucose (70-99(Fasting)) mg/dl Calcium (8.6-10.3) mg/dl Magnesium (1.7-2.4) mg/dl Total Bilirubin (0.2-1.0) mg/dl AST (13-39) U/L ALT (7-52) U/L Alkaline Phosphatase (34-104) U/L Troponin I High Sens (0-14) pg/ml Total Protein (6.0-8.3) gm/dl Albumin (3.4-5.0) gm/dl Globulin (2.5-4.0) gm/dl Albumin/Globulin Ratio (0.9-2) Lipase (11-82) U/L Urine Color Yellow Urine Appearance Clear (Clear) Urine pH 8.5 H (4.5-7.5) Ur Specific Rayne 1.019 (1.000-1.030) Urine Protein Negative (Negative) Urine Glucose (UA) Negative (Negative) Urine Ketones Negative (Negative) Urine Blood Negative (Negative) Urine Nitrite Negative (Negative) Urine Bilirubin Negative (Negative) Urine Urobilinogen Negative (Negative) Ur Leukocyte Esterase Negative (Negative) Urine Opiates Screen Neg (Neg) Ur Methadone, Qual Neg (Neg) Urine Barbiturates Neg (Neg) Ur Phencyclidine (PCP) Neg (Neg) U Amphetamin/Meth Scrn Neg (Neg) MDMA (Ecstasy) Screen Neg (Neg) U Benzodiazepines Scrn Neg (Neg) Ur Cocaine Metabolite Neg (Neg) U Marijuana (THC) Screen Pos H (Neg) U Marijuana THC Carboxy Pending Drug Screen Comment Pending Adenovirus (PCR) (NotDetected) B. pertussis DNA (PCR) (NotDetected) B.parapertussis DNA PCR (NotDetected) C. pneumoniae DNA (PCR) (NotDetected) Coronavirus OC43 (PCR) (NotDetected) Coronavirus HKU1 (PCR) (NotDetected) Coronavirus 229E (PCR) (NotDetected) SARS-CoV-2 (PCR) (NotDetected) Coronavirus NL63 (PCR) (NotDetected) Human Metapneumovir PCR (NotDetected) Influenza Type A (PCR) (NotDetected) Influenza Type B (PCR) (NotDetected) M. pneumoniae (PCR) (NotDetected) Parainfluenza 1 (PCR) (NotDetected) Parainfluenza 2 (PCR) (NotDetected) Parainfluenza 3 (PCR) (NotDetected) Parainfluenza 4 (PCR) (NotDetected) RSV (PCR) (NotDetected) Entero/Rhino (PCR) (NotDetected) 06/09/23 06/09/23 06/09/23 Range/Units 11:07 09:26 08:55 WBC (4.8-10.8) K/ul RBC (4.20-5.40) M/uL Hgb (12.0-16.0) g/dl Hct (37.0-47.0) % MCV (80.0-100.0) fL MCH (25.0-34.0) pg MCHC (32.0-36.0) g/dL RDW Std Deviation (36.4-46.3) fL RDW Coeff of Shelli (11.5-14.5) % Plt Count (130-400) K/uL MPV (9.4-12.4) fL Immature Gran % (Auto) % Neut % (Auto) % Lymph % (Auto) % Wayne % (Auto) % Eos % (Auto) % Baso % (Auto) % Neut # (Auto) (1.40-6.50) K/uL Lymph # (Auto) (1.2-3.4) K/uL Wayne # (Auto) (0.11-0.59) K/uL Eos # (Auto) (0-0.50) K/uL Baso # (Auto) (0-0.2) K/uL Immature Gran # (Auto) (0.01-0.20) K/uL PT 10.1 (9.0-12.0) Seconds INR 0.9 (0.9-1.1) APTT 32.2 H (21.0-31.0) Seconds PTT Ratio 1.1 D-Dimer 250 (0-500) ug/L FEU Sodium (136-145) mmol/L Potassium (3.5-5.1) mmol/L Chloride (98-107) mmol/L Carbon Dioxide (21-32) mmol/L Anion Gap (3-11) BUN (6-23) mg/dl Creatinine (0.6-1.2) mg/dl Est Cr Clr Drug Dosing ml/min Est GFR ( Amer) ml/min Est GFR (Non-Af Amer) ml/min BUN/Creatinine Ratio (10-20) Glucose (70-99(Fasting)) mg/dl Calcium (8.6-10.3) mg/dl Magnesium (1.7-2.4) mg/dl Total Bilirubin (0.2-1.0) mg/dl AST (13-39) U/L ALT (7-52) U/L Alkaline Phosphatase (34-104) U/L Troponin I High Sens < 2.3 (0-14) pg/ml Total Protein (6.0-8.3) gm/dl Albumin (3.4-5.0) gm/dl Globulin (2.5-4.0) gm/dl Albumin/Globulin Ratio (0.9-2) Lipase (11-82) U/L Urine Color Urine Appearance (Clear) Urine pH (4.5-7.5) Ur Specific Rayne (1.000-1.030) Urine Protein (Negative) Urine Glucose (UA) (Negative) Urine Ketones (Negative) Urine Blood (Negative) Urine Nitrite (Negative) Urine Bilirubin (Negative) Urine Urobilinogen (Negative) Ur Leukocyte Esterase (Negative) Urine Opiates Screen (Neg) Ur Methadone, Qual (Neg) Urine Barbiturates (Neg) Ur Phencyclidine (PCP) (Neg) U Amphetamin/Meth Scrn (Neg) MDMA (Ecstasy) Screen (Neg) U Benzodiazepines Scrn (Neg) Ur Cocaine Metabolite (Neg) U Marijuana (THC) Screen (Neg) U Marijuana THC Carboxy Drug Screen Comment Adenovirus (PCR) Not Detected (NotDetected) B. pertussis DNA (PCR) Not Detected (NotDetected) B.parapertussis DNA PCR Not Detected (NotDetected) C. pneumoniae DNA (PCR) Not Detected (NotDetected) Coronavirus OC43 (PCR) Not Detected (NotDetected) Coronavirus HKU1 (PCR) Not Detected (NotDetected) Coronavirus 229E (PCR) Not Detected (NotDetected) SARS-CoV-2 (PCR) Not Detected (NotDetected) Coronavirus NL63 (PCR) Not Detected (NotDetected) Human Metapneumovir PCR Not Detected (NotDetected) Influenza Type A (PCR) Not Detected (NotDetected) Influenza Type B (PCR) Not Detected (NotDetected) M. pneumoniae (PCR) Not Detected (NotDetected) Parainfluenza 1 (PCR) Not Detected (NotDetected) Parainfluenza 2 (PCR) Not Detected (NotDetected) Parainfluenza 3 (PCR) Not Detected (NotDetected) Parainfluenza 4 (PCR) Not Detected (NotDetected) RSV (PCR) Not Detected (NotDetected) Entero/Rhino (PCR) Not Detected (NotDetected) 06/09/23 06/09/23 Range/Units 08:55 08:55 WBC 7.91 (4.8-10.8) K/ul RBC 4.83 (4.20-5.40) M/uL Hgb 14.1 (12.0-16.0) g/dl Hct 42.5 (37.0-47.0) % MCV 88.0 (80.0-100.0) fL MCH 29.2 (25.0-34.0) pg MCHC 33.2 (32.0-36.0) g/dL RDW Std Deviation 41.9 (36.4-46.3) fL RDW Coeff of Shelli 13.0 (11.5-14.5) % Plt Count 297 (130-400) K/uL MPV 10.5 (9.4-12.4) fL Immature Gran % (Auto) 0.5 % Neut % (Auto) 56.4 % Lymph % (Auto) 28.6 % Wayne % (Auto) 8.6 % Eos % (Auto) 4.6 % Baso % (Auto) 1.3 % Neut # (Auto) 4.47 (1.40-6.50) K/uL Lymph # (Auto) 2.26 (1.2-3.4) K/uL Wayne # (Auto) 0.68 H (0.11-0.59) K/uL Eos # (Auto) 0.36 (0-0.50) K/uL Baso # (Auto) 0.10 (0-0.2) K/uL Immature Gran # (Auto) 0.04 (0.01-0.20) K/uL PT (9.0-12.0) Seconds INR (0.9-1.1) APTT (21.0-31.0) Seconds PTT Ratio D-Dimer (0-500) ug/L FEU Sodium 138 (136-145) mmol/L Potassium 4.1 (3.5-5.1) mmol/L Chloride 104 (98-107) mmol/L Carbon Dioxide 27 (21-32) mmol/L Anion Gap 7 (3-11) BUN 15 (6-23) mg/dl Creatinine 0.67 (0.6-1.2) mg/dl Est Cr Clr Drug Dosing 109.9 ml/min Est GFR ( Amer) 117.1 ml/min Est GFR (Non-Af Amer) 101.1 ml/min BUN/Creatinine Ratio 22.4 H (10-20) Glucose 90 (70-99(Fasting)) mg/dl Calcium 9.1 (8.6-10.3) mg/dl Magnesium 2.0 (1.7-2.4) mg/dl Total Bilirubin 0.6 (0.2-1.0) mg/dl AST 13 (13-39) U/L ALT 12 (7-52) U/L Alkaline Phosphatase 72 (34-104) U/L Troponin I High Sens < 2.3 (0-14) pg/ml Total Protein 6.9 (6.0-8.3) gm/dl Albumin 4.1 (3.4-5.0) gm/dl Globulin 2.8 (2.5-4.0) gm/dl Albumin/Globulin Ratio 1.5 (0.9-2) Lipase 21 (11-82) U/L Urine Color Urine Appearance (Clear) Urine pH (4.5-7.5) Ur Specific Rayne (1.000-1.030) Urine Protein (Negative) Urine Glucose (UA) (Negative) Urine Ketones (Negative) Urine Blood (Negative) Urine Nitrite (Negative) Urine Bilirubin (Negative) Urine Urobilinogen (Negative) Ur Leukocyte Esterase (Negative) Urine Opiates Screen (Neg) Ur Methadone, Qual (Neg) Urine Barbiturates (Neg) Ur Phencyclidine (PCP) (Neg) U Amphetamin/Meth Scrn (Neg) MDMA (Ecstasy) Screen (Neg) U Benzodiazepines Scrn (Neg) Ur Cocaine Metabolite (Neg) U Marijuana (THC) Screen (Neg) U Marijuana THC Carboxy Drug Screen Comment Adenovirus (PCR) (NotDetected) B. pertussis DNA (PCR) (NotDetected) B.parapertussis DNA PCR (NotDetected) C. pneumoniae DNA (PCR) (NotDetected) Coronavirus OC43 (PCR) (NotDetected) Coronavirus HKU1 (PCR) (NotDetected) Coronavirus 229E (PCR) (NotDetected) SARS-CoV-2 (PCR) (NotDetected) Coronavirus NL63 (PCR) (NotDetected) Human Metapneumovir PCR (NotDetected) Influenza Type A (PCR) (NotDetected) Influenza Type B (PCR) (NotDetected) M. pneumoniae (PCR) (NotDetected) Parainfluenza 1 (PCR) (NotDetected) Parainfluenza 2 (PCR) (NotDetected) Parainfluenza 3 (PCR) (NotDetected) Parainfluenza 4 (PCR) (NotDetected) RSV (PCR) (NotDetected) Entero/Rhino (PCR) (NotDetected) Diagnostic Findings MRI C Spine 06/09/2023 MR cervical spine wo/w con HISTORY: 52 years-old Female L arm sensory loss, balance loss. FHX Multiple Scl acute neck pain with left upper extremity sensory loss COMPARISON: 02/06/2000 TECHNIQUE: Multiplanar multisequence MRI of the cervical spine was obtained both with and without the use of IV contrast FINDINGS: No abnormal enhancement. Motion degraded exam. Normal signal within the cervical and imaged thoracic spinal cord. Artifact on the axial images limits evaluation of the cervical spinal cord. No acute fracture, subluxation, significant bone or soft tissue edema. CT-C3: Uncovertebral hypertrophy with mild facet arthrosis. No central canal or neural foraminal narrowing. Unchanged. C3-C4: Uncovertebral hypertrophy with mild facet arthrosis. No central canal or neural foraminal narrowing. Unchanged. C4-C5: Uncovertebral hypertrophy with mild facet arthrosis. Central canal and left neural foramen are patent. Mild right neural foraminal narrowing. C5-C6: Uncovertebral hypertrophy with mild facet arthrosis. The central canal is patent. Moderate bilateral neural foraminal narrowing. C6-C7: Uncovertebral hypertrophy with tiny circumferential annular disc bulge. Mild facet arthrosis. The central canal is patent. Mild to moderate bilateral foraminal narrowing a similar to prior. C7-T1: Mild facet arthrosis. No central canal or neural foraminal narrowing. IMPRESSION: 1. Motion degraded exam. 2. Normal signal within the cervical spinal cord. 3. No abnormal enhancement. 4. No high-grade central canal or neural foraminal stenosis. MRI Brain 06/09/2023 MR brain wo/w con HISTORY: 52 years-old Female L arm sensory loss, balance loss. FHX Multiple Scl acute memory loss COMPARISON: 04/19/2023 TECHNIQUE: Multiplanar multisequence MRI of the brain was obtained with and without the use of IV contrast FINDINGS: No restricted diffusion. Midline shift measures are unremarkable. No acute intracranial hemorrhage, midline shift, abnormal extra-axial collection, hydrocephalus or intracranial mass. No pathologic artifact. Moderate involutional changes with unchanged mild scattered subcentimeter T2/FLAIR intense foci throughout the white matter, predominantly in a subcortical distribution. Cerebral venous sinuses and major arterial flow voids appear patent. Skull, orbits and soft tissues are unremarkable. Mastoid air cells and paranasal sinuses are clear. Normal signal of the imaged cervical spinal cord. No abnormal enhancement. IMPRESSION: 1. No acute intracranial abnormality. 2. No abnormal enhancement. 3. Unchanged mild scattered T2/FLAIR hyperintense foci throughout the white matter compared to the 04/19/2023 study which is again noted within a subcortical predominate distribution. Again, this favors chronic microvascular ischemic disease. A demyelinating process such as multiple sclerosis considered less likely. Medications Administered Current Inpatient Medications Acetaminophen (Acetaminophen 325 Mg Tab) 650 mg PO Q4H PRN PRN Reason: Pain or Fever Stop: 07/09/23 17:52 Cyclopentolate HCl (Cyclopentolate Hcl 1% Op Soln 2 Ml Btl) 1 drops OP TID NAS Stop: 07/09/23 20:59 Last Admin: 06/09/23 20:31 Dose: 1 drops Divalproex Sodium (Divalproex Delay Release 250 Mg Tabec) 750 mg PO HS NAS Stop: 07/09/23 20:59 Last Admin: 06/09/23 20:30 Dose: 750 mg Duloxetine HCl (Duloxetine Hcl 60 Mg Cap) 60 mg PO DAILY NAS Stop: 07/10/23 08:59 Enoxaparin Sodium (Enoxaparin Inj 40 Mg/0.4 Ml Syr) 40 mg SQ Q12H NAS Stop: 07/09/23 20:59 Last Admin: 06/09/23 20:32 Dose: 40 mg Ergocalciferol (Ergocalciferol 50,000 Units 1250 Mcg Cap) 50,000 units PO Th@0900 [facility] Stop: 07/13/23 08:59 Lorazepam (Lorazepam 1 Mg Tab) 1 mg PO Q15M PRN PRN Reason: MRI (See instruction) Prednisolone Sodium Phosphate (Prednisolone Sod Phos 1% 10 Ml Btl) 1 drops OP Q3H NAS Stop: 07/09/23 17:59 Last Admin: 06/10/23 06:16 Dose: 1 drops Resident Activity Tracking Resident Involvement: Resident Care Provided Care Provided: Adult Hospital Medicine
[2023-06-10] MEDS: CYCLOPENTOLATE HCL 1% OP SOLN 2 ML BTL OP SCH ×2 (08:04→14:56)
[2023-06-10] MEDS: ENOXAPARIN INJ 40 MG/0.4 ML SYR SQ SCH (08:05)
[2023-06-10] MEDS ORDERED: ONDANSETRON INJ 2 MG/ML 2 ML VIAL IV STA (08:26)
[2023-06-10] MEDS ORDERED: ONDANSETRON INJ 2 MG/ML 2 ML VIAL ONE (08:35)
[2023-06-10] MEDS ORDERED: DULoxetine HCL 60 MG CAP PO SCH (09:00)
[2023-06-10] MEDS ORDERED: FAMOTIDINE 40 MG TABLET PO SCH (10:15)
[2023-06-10 11:50] LABS: Adenovirus F 40/41 PCR Not Detected (NotDetected); Astrovirus PCR Not Detected (NotDetected); Campylobacter PCR Not Detected (NotDetected); Cryptosporidium PCR Not Detected (NotDetected); Cyclospora cayetanensis PCR Not Detected (NotDetected); Entamoeba histolytica PCR Not Detected (NotDetected); Enteroaggregative E.coli(EAEC) Not Detected (NotDetected); Enteropathogenic E.coli (EPEC) Not Detected (NotDetected); Enterotoxigenic E.coli (ETEC) Not Detected (NotDetected); Giardia lamblia PCR Not Detected (NotDetected); Norovirus GI/GII PCR Not Detected (NotDetected); Plesiomonas shigelloides PCR Not Detected (NotDetected); Rotavirus A PCR Not Detected (NotDetected); Salmonella PCR Not Detected (NotDetected); Sapovirus PCR Not Detected (NotDetected); Shiga-like Toxin E.coli (STEC) Not Detected (NotDetected); Shigella/Enteroinvasive E.coli Not Detected (NotDetected); Vibrio cholerae PCR Not Detected (NotDetected); Vibrio species PCR Not Detected (NotDetected); Yersinia enterocolitica PCR Not Detected (NotDetected)
--- NOTE | 2023-06-10 13:34 | XCELERA ---
[id number]
--- NOTE | 2023-06-10 14:38 | Discharge Summary ---
Date of Service June 10, 2023 Admission HPI Per Admitting Provider Irlanda is a 52-year-old female with a past medical history of BMI 41, hypertension, cervical radiculopathy, ankylosing spondylitis, GERD, fibromyalgia, depression/anxiety, polyarthritis, and migraine who presented to the ER with lightheadedness and chest tightness/chest pain. Lightheadedness, dizziness, and feeling 'off balance' with terribl elightheadedness last night. Lightheadedness started a few days ago. Was taking etodolac for pain, has not taken this in the last day or two. Has had lightheadness before, but this 'feels different than before both more severe and more like I'll fall' Inner ears are with strong tinnitus in the last week. Had an MRI which was supposed to be contrasted, but could not tolerate the MRI due to anxiety so that portion was cancelled Chest feels tight/harrison gwhen breathing but not pain No weakness in the arms of legs, L arm with numbness and tingling much worse than normal but is not week. Does get R eye ocular migraines which can cause vision loss for several days R eye uvetits. Stopped aspirin and is now on humira No strokes, no heart attack FHx of Multiple Sclerosis in fathers side of the family. PGM with MS and Parkinsons. Neice and aunt also with MS MRI 04/2023: 1. No acute infarct or intracranial hemorrhage. 2. No change in the scattered nonspecific foci of increased T2 signal within the white matter. This favors mild microvascular ischemic change or migraines given the long-term stability. A demyelinating process could also be considered in the differential diagnosis but is considered less likely. Medical History: Reviewed Medications: Reviewed Surgical History: Reviewed Family history: Reviewed Allergies: Reviewed Social History: No tobacco product, marijuana card uses oil tinctures and lozenges which help with migraines, no recreational drug use Code Status: Full Code Principal Diagnosis Non-cardiac chest pain Discharge Exam General: patient resting comfortably, NAD, non-toxic in appearance, AA&O x 4, answers questions appropriately and follows commands. Skin: warm, dry, intact, no rashes or lesions HEENT: NC/AT, PERRL, EOMI, anicteric sclera, conjunctiva without injection, external ear normal to inspection and nontender, nares patent, moist mucus membranes, dentition intact, no oropharyngeal lesions, neck supple, trachea midline, no LAD, no thyromegaly, no JVD Heart: +S1/S2, regular, no m/r/g Lungs: equal air entry bilaterally, no rales/rhonchi/wheezes Abd: +BS, soft, NT/ND, no masses/organomegaly/ascites Ext: warm, 2+ pulses in UE/LE bilaterally, no clubbing/cyanosis or edema Neuro: nonfocal, patient AA&O x 4, speech intact, no facial droop, moving all extremities on command with equal strength 04/05 Discharge Data Allergies Allergy/AdvReac Type Severity Reaction Status Date / Time adalimumab [From Humira(CF)] Allergy Intermediate rash Verified 06/03/23 11:49 Consultations 06/09/23 13:58 ED Decision to Admit Stat Procedures Performed EKG Echocardiogram Ordered Studies 06/09/23 14:53 EKG MRI Brain [MR brain wo/w con] Urgent MRI Cervical [MR cervical spine wo/w con] Urgent Echocardiogram All negative Hospital Course (1) Nausea & vomiting: Managed with Zofran 4mg IV PRN (2) Diarrhea: improving at discharge stool biofire and c diff negative Consideration for IBS vs. atypical/complicated migraine (3) Sensation of chest tightness: - New chest tightness/pain with deep inspiration, D-Dimer negative. Troponin negative x2. - EKG: sinus bradycardia, qtc 413. No territorial signs of ischemia No leukocytosis, CXR is normal Electrolytes/BMP is normal - New grade 1 systolic murmur - Negative Echo (4) Cervical radiculopathy: -With asymmentric sensory change, dizziness without vertigo and orthostasis in ER -Previous MRI concerning for potential demyelinating disease -Repeat MRI of brain and C-spine with contrast for reevaluation (5) Dizziness: - MRI 04/2023:1. No acute infarct or intracranial hemorrhage. 2. No change in the scattered nonspecific foci of increased T2 signal within the white matter. This favors mild microvascular ischemic change or migraines given the long-term stability. A demyelinating process could also be considered in the differential diagnosis but is considered less likely. No history of CVA, used to be on aspirin but transitioned for uveitis management as noted below Does have strong family history and multiple family members on her father side, patient's MRI above was not able to be completed with contrast due to claustro phobia Due to left upper extremity neurologic deficit (asymmetrical sensory change), focal dizziness without vertigo and orthostasis in ER, and MRI concerning for potential demyelinating disease above will repeat MRI of the brain and C-spine with contrast for reevaluation Patient without orthostatic hypotension at bedside and did not improve with fluids on ambulatory trial (6) Ocular migraine: Continue Aimovig Topiramate previously discontinued due to sedation/forgetfulness/cognitive side effects Outpatient MRIs have been normal (7) Depression with anxiety: Continue Cymbalta On Depakote [employer], continued (8) Fibromyalgia: Continue home medications, pain adequately controlled on admission (9) Systolic murmur: New to patient, soft murmur best appreciated at left parasternal border Echo pending (10) Ankylosing spondylitis: Follows with rheumatology 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 Started adalimumab every 14 days NSAIDs Total Time Total Time Spent Total Time Spent (In Minutes): I spent 45 minutes seeing the patient, reviewing data, and documenting Discharge Plan Discharge Items Patient Disposition: Home - Self-Care Reason For Visit: DIZZINESS, 1 ARM NUMBNESS Discharge Diagnosis: Dizziness, Diarrhea Activity: Resume your previous activity Non-emergency contact: Primary Care Provider and Neurologist Call non-emergency contact if: you have any medication questions, your symptoms worsen and you have a fever Follow-up/Referrals: Avery Rodríguez MD [Primary Care Provider] - 06/12/23 1:30 pm (Will see BHAVIN Cowan at Dr Rodríguez's office) Diet: Regular Addtl Attending Provider Instructions: You were admitted to the hospital for dizziness and chest discomfort. You were treated with had tests for your heart that did not show any disease. You also had MRI of your brain and neck which did not show anything new. While you were here we also treated you for nausea, vomiting, and diarrhea. We ran tests to make sure there was no infection. A discharge summary will be sent to your primary care physician to ensure continuity of care. Please bring this discharge summary with you to your next office appointment so that your provider can review it at that time. Medications: Your medication list has been reviewed and reconciled upon discharge to ensure accuracy and continuity of care. An updated list of all your medications is included with your hospital discharge paperwork. Please review this list closely and make note of any changes to your medications. You were started on famotidine 40mg twice daily to help with upset stomach. This medication was sent to your pharmacy. Continue all of your other typical home medications as you would have prior to hospitalization. Follow up appointments: - Make a follow up appointment with your PCP within the next week. It is very important that you follow up with them shortly after discharge from the hospital. - Keep all of your follow up appointments as already scheduled. If you cannot make an appointment, notify your provider. CONTACT YOUR PRIMARY CARE PROVIDER if you experience any of the following: Difficulty following your treatment plan - Difficulty taking any of your medications CALL 911 OR GO TO THE EMERGENCY DEPARTMENT if you experience any of the following: - Sudden, severe abdominal pain or nausea/vomiting - Severe chest pain or chest pain that radiates to your jaw or arm - Sudden, severe shortness of breath or difficulty breathing Pending Studies at Discharge: Yes Stand-Alone Forms: My [facility] Medications and DC Order Prescriptions: New famotidine 40 mg Tablet 40 mg PO BID Qty: 60 1RF Continued divalproex 500 mg tablet,delayed release (DR/EC) See Rx Instructions .ROUTE .COMPLEX Qty: 90 1RF Dose Instruction: Take 1 tablet by mouth at bedtime. Rx Instructions: Take 1 tablet by mouth at bedtime. Aimovig Autoinjector 140 mg/mL auto-injector 140 mg subcut MONTHLY 90 Days Qty: 3 3RF Rx Instructions: Inject one auto-injector 140 mg (1 mL) once per month cholecalciferol (vitamin D3) 1,250 mcg (50,000 unit) capsule 50,000 unit PO .COMPLEX 30 Days Qty: 30 2RF Rx Instructions: 50,000 units orally ONCE A WEEK; divalproex [Depakote] 250 mg tablet,delayed release (DR/EC) 250 mg PO .at hs Qty: 90 1RF Rx Instructions: with the 500 mg tablet duloxetine 60 mg capsule,delayed release(DR/EC) 60 mg PO DAILY Qty: 90 1RF cyclopentolate [Cyclogyl] 1 % drops 1 drp ophthalmic (eye) TID Qty: 15 0RF Rx Instructions: compress lacrimal sac for 1-2 minutes after instillation prednisolone sodium phosphate 1 % drops 1 drp ophthalmic (eye) Q3H Qty: 10 0RF No Action Cimzia 400 mg/2 mL (200 mg/mL x 2) syringe kit 400 mg subcut .COMPLEX Qty: 3 0RF Rx Instructions: 400 mg subcutaneously q2 weeks for 3 doses, then q28 days; Cimzia 400 mg/2 mL (200 mg/mL x 2) syringe kit 400 mg subcut .COMPLEX Qty: 1 4RF Rx Instructions: 400 mg subcutaneously q28 days; Discharge Orders: Discharge Order (Routine); Ordered 06/10/23 Ordered By: Vitaliy Mckeon Admission Data Admit Date/Time: 06/09/23 14:51 Attending Provider: Nazario Gutierrez Admit Provider: Angel Regalado Primary Care Provider: Avery Rodríguez. Other Providers: Angel Regalado Other Interventions: Discharge Summary Assessment (RN) Last Done: 06/10/23 15:09 Supervising Physician Co-Signing Physician Notes ATTESTATION I also saw the patient and confirmed delgado portions of the history and exam. I agree with the impression and plan in the resident documentation, and as summarized below. The patient is examined twice today, once around 10 AM and a second time around 2 PM. This afternoon, she reports feeling much improved. She was able to tolerate lunch without nausea or vomiting. She had no loose stools after eating. She reports having a long history of chronic, intermittent gastrointestinal symptoms which sound like IBS. Additionally, she has been on higher doses of NSAIDs and aspirin for her ankylosing spondylitis and migraine headaches. The chest pain, left-sided paresthesias described upon admission have completely resolved. EXAM 115/77, 69, 20, 36.9, 95% on room air She is pleasant alert. No distress. No complaints upon our 2 PM exam Heart is regular rate and rhythm. Lungs are clear with nonlabored respiration Abdomen is soft and nontender. The right sided tenderness present upon the morning exam is now resolved. Extremities without edema DATA Labs CBC from admission is unremarkable. CMP from admission is unremarkable. Imaging Chest x-ray completed 06/09/2023 upon admission shows no acute process MRI of the brain completed 06/09/2023 upon admission shows no acute intracranial abnormality. There is an area thought to be most consistent with chronic m icrovascular ischemic disease, demyelinating process such as MS considered less likely. Cervical spine MRI completed 06/09/2023 was unremarkable. Echocardiogram completed 06/10/2023 shows normal left ventricular systolic function, mildly elevated right ventricular systolic pressure, no significant valvular heart disease. Micro BioFire performed on stool collected this morning is negative for all tested pathogens Respiratory BioFire performed upon admission is also negative for all tested pathogens IMPRESSION & PLAN Nausea and vomiting, improved Abdominal pain with loose stools, improved Unsure if there is a unifying diagnosis (antecedent viral infection, complex migraine) or a number of different etiologies (exacerbation of underlying chronic issues). In any event, she is markedly improved this afternoon and is hoping to be discharged. Imaging and lab work have been largely unremarkable. She has had a lot of NSAID/aspirin recently, so this could account for the upper gastrointestinal/chest discomfort; the lower GI symptoms may just be an exacerbation of her IBS. Home prescription for Zofran, as needed Recommend acid suppression/GI protection (H2 haroon in the short term, could consider PPI) Discussed signs and symptoms which would warrant emergent reevaluation; otherwise follow-up with PCP Additional per resident documentation
--- NOTE | 2023-06-10 18:02 | Electrocardiogram Report ---
Test Reason : Blood Pressure : / mmHG Vent. Rate : 054 BPM Atrial Rate : 054 BPM P-R Int : 156 ms QRS Dur : 074 ms QT Int : 436 ms P-R-T Axes : 051 017 032 degrees QTc Int : 413 ms Sinus bradycardia Abnormal ECG When compared with ECG of 25-MAR-2019 13:47, No significant change was found Confirmed by Audie Abel ([id number]) on 06/10/2023 6:01:58 PM Referred By: REFERRED SELF Confirmed By:Jay Abel
[2023-06-12 12:07] LABS: Marijuana Quant, GCMS Urine 2380 ng/mL (<5)
[2023-06-13] MEDS ORDERED: ERGOCALCIFEROL 50,000 UNITS 1250 MCG CAP PO SCH (09:00)
== END 2023-06-10 15:25 | disposition home or self-care (01) ==
LOC: ED 08:42 → 2S 08:42 → SUATTDRO 14:51 → 2S 15:48